=== PATIENT | female | born 1995 | race Caucasian/White ===

== ENCOUNTER 2020-12-28 03:52 | Emergency (ER) | payer OTHER ==
[~2020-12-28 03:52] MED LIST: COLACE100 MG PO; FEOSOL325 MG PO; IBUPROFEN800 MG PO; KEFLEX500 MG PO; PRENATAL FORMU1 EACH PO
[2020-12-28 04:37] LABS: BASOPHIL 0.2 % (0-2); HCT 43.3 % (37.0-47.0); HGB 14.8 g/dl (12.5-16.0); LYMPHOCYTE 26.6 % (15-48); MCH 31.2 pg (25.0-31.0); MCHC 34.2 g/dL (32.0-36.0); MCV 91.4 fL (78.0-100.0); MPV 10.9 fL (6.0-9.5); NEUTROPHIL 60.9 % (41-80); NRBC 0; PLT 223 K/uL (150-400); RBC 4.74 M/uL (4.20-5.40); WBC 10.5 K/uL (4.0-10.5)
[2020-12-28 04:42] LABS: ALBUMIN 4.1 g/dL (3.4-5.0); BILIRUBIN - TOTAL 0.4 mg/dL (0.2-1.0); BUN/CREAT RATIO (CALC) 14.3 RATIO; CREATININE 0.7 mg/dL (0.51-0.95); GLOBULIN (CALCULATION) 3.9 g/dL; POTASSIUM 4.7 mmol/L (3.5-5.1)
[2020-12-28] MEDS ORDERED: OMEPRAZOLE40 MG PO (05:47)
[2020-12-28] MEDS ORDERED: BENTYL10 MG PO (05:47)
== END 2020-12-28 06:20 | disposition home or self-care (01) ==
LOC: FER 03:52
PROVIDERS: Emergency Medicine
DX: R10.11 Right upper quadrant pain (principal); R10.13 Epigastric pain; R19.7 Diarrhea, unspecified; R11.0 Nausea
CPT/HCPCS: 36415; 80053; 83690; 85025; 99284